=== PATIENT | male | born 1990 | race Caucasian/White ===

== ENCOUNTER 2016-04-08 13:13 | Emergency (ER) | payer OTHER ==
[2016-04-08] MEDS ORDERED: NS 0.9% 1000 ML* 1,000 ML IV ONE (13:17)
[2016-04-08 14:13] LABS: Hematocrit 43 % (42-52); Hemoglobin 14.4 g/dl (14.0-18.0); Mean Corpuscular HGB Conc 34 g/dl (31-36); Mean Corpuscular Hemoglobin 30 pg (27-31); Mean Corpuscular Volume 89 fL (80-94); Mean Platelet Volume 8 um3 (7.4-10.4); Red Blood Count 4.84 10^6/ul (4.0-5.4); Red Cell Distribution Width 14 % (10.5-15); White Blood Count 8.2 10^3/ul (3.5-10.8)
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
[2016-04-08 14:28] LABS: Albumin 4.1 g/dL (3.2-5.2); BUN/Creatinine Ratio 15.1 (8-20); C Reactive Protein 1.48 mg/L (< 5.00); Calcium 9.3 mg/dL (8.6-10.3); EGFR African American 140.5 (>60); EGFR Non-African American 109.3 (>60); Globulin 2.5 g/dL (2-4); Total Bilirubin 0.4 mg/dL (0.2-1.0); Total Protein 6.6 g/dL (6.4-8.9)
--- NOTE | 2016-04-08 15:48 | ED ---
Dk Del Rosario Billy, scribed for Jean Madera MD on 04/08/16 at 1353 . Complex/Multi-Sys Presentation - HPI Summary HPI Summary: Patient is a 25 year-old male coming to [facility] presenting with general malaise for the last several days. Today, while he was at [facility], his nurses found his blood pressure to be 86/50. By EMS arrival, it has risen to 152/80. He states that at [facility], he felt room-spinning dizziness, diffuse tingling, and headache. He also states that he has had several episodes of watery diarrhea for the last few days (without blood or mucus). Denies any recent travel or antibiotic use. - History Of Current Complaint Chief Complaint: EDDizziness Time Seen by Provider: 04/08/16 13:17 Hx Obtained From: Patient Onset/Duration: Gradual Onset, Lasting Days, Still Present Timing: Constant Severity Currently: Moderate Severity Initially: Moderate Aggravating Factor(s): dizziness worse with position change Associated Signs And Symptoms: Positive: Dizziness, Headache, Diarrhea, Other - diffuse tingling - Allergies/Home Medications Allergies/Adverse Reactions: Allergies Allergy/AdvReac Type Severity Reaction Status Date / Time No Known Allergies Allergy Verified 04/08/16 14:12 PMH/Surg Hx/FS Hx/Imm Hx Endocrine/Hematology History: Denies: Hx Diabetes Cardiovascular History: Denies: Hx Hypertension Infectious Disease History: No Infectious Disease History: Denies: Traveled Outside the [place] in Last 30 Days - Family History Known Family History: Positive: Diabetes - Social History Alcohol Use: None Hx Substance Use: Yes - Currently going to [facility] Substance Use Type: Reports: Heroin, Synthetic Drugs Hx Tobacco Use: Yes Smoking Status (MU): Former Smoker Review of Systems Positive: Diarrhea Neurological: Other - dizzy Positive: Headache, Paresthesia - diffuse All Other Systems Reviewed And Are Negative: Yes Physical Exam - Summary Physical Exam Summary: VITAL SIGNS: Reviewed. GENERAL: Patient is a well developed and nourished male who is lying comfortable in the stretcher. Patient is not in any acute respiratory distress. HEAD AND FACE: Normocephalic and atraumatic. EYES: PERRLA, EOMI x 2, No injected conjunctiva. EARS: Hearing grossly intact. Ear canals and tympanic membranes are WNL. MOUTH: Oropharynx within normal limits. NECK: Supple, trachea is midline, no adenopathy, no JVD. CHEST: Symmetric, no tenderness at palpation LUNGS: Clear to auscultation bilaterally. No wheezing or crackles. CVS: RRR,, S1 and S2 present, no murmurs or gallops appreciated. ABDOMEN: Soft, non-tender. No signs of distention. Positive bowel sounds. No rebound no guarding, and no masses palpated. No abdominal bruit or pulsations. EXTREMITIES: FROM in all major joints, no edema, no cyanosis or clubbing. NEURO: Alert and oriented x 3. No acute neurological deficits. Speech is normal. SKIN: Dry and warm Triage Information Reviewed: Yes Vital Signs On Initial Exam: Initial Vitals Temp Pulse Resp BP Pulse Ox 98.2 F 89 20 130/68 98 04/08/16 13:50 04/08/16 13:50 04/08/16 13:50 04/08/16 13:50 04/08/16 13:50 Vital Signs Reviewed: Yes Diagnostics - Vital Signs Vital Signs Temp Pulse Resp BP Pulse Ox 04/08/16 13:50 98.2 F 89 20 130/68 98 - Laboratory Lab Results: Lab Results 04/08/16 04/08/16 04/08/16 Range/Units 14:00 14:00 14:00 WBC 8.2 (3.5-10.8) 10^3/ul RBC 4.84 (4.0-5.4) 10^6/ul Hgb 14.4 (14.0-18.0) g/dl Hct 43 (42-52) % MCV 89 (80-94) fL MCH 30 (27-31) pg MCHC 34 (31-36) g/dl RDW 14 (10.5-15) % Plt Count 225 (150-450) 10^3/ul MPV 8 (7.4-10.4) um3 Neut % (Auto) 60.0 (38-83) % Lymph % (Auto) 26.2 (25-47) % [place] % (Auto) 12.3 H (1-9) % Eos % (Auto) 0.4 (0-6) % Baso % (Auto) 1.1 (0-2) % Absolute Neuts (auto) 4.9 (1.5-7.7) 10^3/ul Absolute Lymphs (auto) 2.1 (1.0-4.8) 10^3/ul Absolute Monos (auto) 1.0 H (0-0.8) 10^3/ul Absolute Eos (auto) 0 (0-0.6) 10^3/ul Absolute Basos (auto) 0.1 (0-0.2) 10^3/ul Absolute Nucleated RBC 0.01 10^3/ul Nucleated RBC % 0.1 Sodium 135 (133-145) mmol/L Potassium 4.0 (3.5-5.0) mmol/L Chloride 104 (101-111) mmol/L Carbon Dioxide 25 (22-32) mmol/L Anion Gap 6 (2-11) mmol/L BUN 13 (6-24) mg/dL Creatinine 0.86 (0.67-1.17) mg/dL Est GFR ( Amer) 140.5 (>60) Est GFR (Non-Af Amer) 109.3 (>60) BUN/Creatinine Ratio 15.1 (8-20) Glucose 118 H (70-100) mg/dL Lactic Acid 1.3 (0.5-2.0) mmol/L Calcium 9.3 (8.6-10.3) mg/dL Total Bilirubin 0.40 (0.2-1.0) mg/dL AST 287 H (13-39) U/L ALT 719 H (7-52) U/L Alkaline Phosphatase 106 H (34-104) U/L C-Reactive Protein 1.48 (< 5.00) mg/L Total Protein 6.6 (6.4-8.9) g/dL Albumin 4.1 (3.2-5.2) g/dL Globulin 2.5 (2-4) g/dL Albumin/Globulin Ratio 1.6 (1-3) Amylase 21 L (29-103) U/L Lipase 19 (11.0-82.0) U/L Result Diagrams: 04/08/16 14:00 04/08/16 14:00 Lab Statement: Any lab studies that have been ordered have been reviewed, and results considered in the medical decision making process. - Radiology Abd xray Radiology Interpretation Completed By: Radiologist - Negative exam. - EKG 1309 EKG Interpretation: NSR 91 bpm, no ST elevation Re-Evaluation - Re-Evaluation First Eval Re-Evaluation Time: 15:25 Change: Improved Complex Multi-Symp Course/Dx Assessment/Plan: Patient is a 25 year-old male [facility] presenting with general malaise for the last several days. Today, while he was at [facility], his nurses found his blood pressure to be 86/50. By EMS arrival, it has risen to 152 /80. He states that at [facility], he felt room-spinning dizziness, diffuse tingling, and headache. He also states that he has had several episodes of watery diarrhea for the last few days (without blood or mucus). Denies any recent travel or antibiotic use. Bloodwork WNL except for increased AST and ALT. The patient has a history of alcohol abuse, therefore undetermined if this is secondary to alcohol consumption. However, he was recommended to follow up with PCP for further workup and management. Pt was also given IV fluids and Zofran and all of his sx have resolved. At this point, he is asymptomatic and able to tolerate PO without N/V. He is hemodynamically stable, A&Ox3. - Diagnoses Differential Diagnoses/HQI/PQRI: Other - Gastritis, gastroenteritis Provider Diagnoses: Nausea vomiting and diarrhea, Dizziness Discharge - Discharge Plan Condition: Stable Disposition: HOME Patient Education Materials: Acute Nausea and Vomiting (ED), Acute Diarrhea (ED ), Dizziness (ED) Referrals: [facility] PHYSICIAN REFERRAL [Outside] The documentation as recorded by the Dk mims Billy accurately reflects the service I personally performed and the decisions made by me, Jean Madera MD.
[2016-04-08 15:50] VITALS: BP 121/71
== END 2016-04-08 15:50 | disposition home or self-care (01) ==
LOC: ED 13:13
DX: R11.2 Nausea with vomiting, unspecified (principal); R19.7 Diarrhea, unspecified; R42 Dizziness and giddiness; Z87.891 Personal history of nicotine dependence
CPT/HCPCS: 36415; 74020; 80053; 82150; 83605; 83690; 85025; 86140; 93005; 99283